=== PATIENT | female | born 1995 | race African-American/Black ===

== ENCOUNTER 2016-12-15 19:56 | Emergency (ER) | payer OTHER ==
--- NOTE | 2016-12-15 20:02 | ED Physician Documentation ---
PD HPI FEMALE - Stated complaint Stated Complaint: FEMALE /5WK OB - History obtained from History obtained from: Patient - History of Present Illness Timing - onset: How many hours ago (3 1/2), Today Timing - duration: Hours (3 1/2 hours ago started with some cramping and bleeding, has gone through 1 pad so far.) Timing - details: Abrupt onset, Still present Associated symptoms: Back pain, Pelvic pain, Vaginal bleeding. No: Fever, Chest /shoulder pain, Vaginal discharge, Genital sore/lesion, Dysuria Contributing factors: (she had positive test 2 weeks ago and a confirmatory blood test last week. Had cramps and vaginal bleeding today. 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 Longest duration was 10 weeks.) Similar symptoms before: Diagnosis (2 prior miscarriages) Recently seen: Clinic (had positive test about 2 weeks ago.) Review of Systems Constitutional: denies: Fever, Chills Nose: denies: Rhinorrhea / runny nose, Congestion Throat: denies: Sore throat Cardiac: denies: Chest pain / pressure Respiratory: denies: Dyspnea, Cough GI: reports: Nausea. 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) - Past Surgical History Past Surgical History: Yes HEENT: Myringotomy (tubes) - Present Medications Home Medications: Ambulatory Orders Medication Instructions Recorded Confirmed Pnv95/Ferrous Fumarate/FA 1 each PO DAILY 12/15/16 12/15/16 [ Formula] - Allergies Allergies/Adverse Reactions: Allergies Allergy/AdvReac Type Severity Reaction Status Date / Time Penicillins Allergy Anaphylaxis Verified 12/15/16 20:03 - Social History Does the pt smoke?: No Smoking Status: Former smoker Does the pt drink ETOH?: No Does the pt have substance abuse?: No - Immunizations Immunizations are current?: Yes PD ED PE NORMAL - Vitals Vital signs reviewed: Yes - General General: Alert and oriented X 3, No acute distress, Well developed/nourished - Neck Neck: Supple, no meningeal sign, No adenopathy - Cardiac Cardiac: RRR, No murmur - Respiratory Respiratory: Clear bilaterally - Abdomen Abdomen: Normal bowel sounds, Soft, Non distended, No organomegaly, Other (mild tender suprapubic area. Not tender RLQ. ) - Female Female : Deferred - Rectal Rectal: Deferred - Back Back: No CVA TTP - Derm Derm: Normal color, Warm and dry - Neuro Neuro: Alert and oriented X 3, No motor deficit, Normal speech Results - Vitals Vitals: Vital Signs - 24 hr 12/15/16 12/15/16 12/15/16 20:01 23:13 23:39 Temperature 36.5 C 36.5 C Heart Rate 86 65 95 Respiratory 16 20 18 Rate Blood Pressure 163/87 H 115/52 L 125/74 O2 Saturation 99 99 99 Oxygen O2 Source Room air - Labs Labs: Laboratory Tests 12/15/16 12/15/16 12/15/16 20:27 20:27 22:43 WBC 8.0 RBC 4.28 Hgb 12.1 Hct 36.2 L MCV 84.5 MCH 28.2 MCHC 33.4 RDW 15.6 H Plt Count 373 MPV 7.8 L Neut # 3.7 Lymph # 3.0 [place] # 0.8 Eos # 0.4 Baso # 0.1 Absolute Nucleated RBC 0.00 Nucleated RBCs 0.0 HCG, Quant 6.52 Urine Color YELLOW Urine Clarity HAZY Urine pH 6.0 Ur Specific Pool <=1.005 Urine Protein NEGATIVE Urine Glucose (UA) NEGATIVE Urine Ketones NEGATIVE Urine Occult Blood LARGE H Urine Nitrite NEGATIVE Urine Bilirubin NEGATIVE Urine Urobilinogen 0.2 (NORMAL) Ur Leukocyte Esterase NEGATIVE Urine RBC 6-10 H Urine WBC 0-3 Ur Squamous Epith Cells FEW Squamous Urine Bacteria None Seen Ur Microscopic Review INDICATED Urine Culture Comments NOT INDICATED - Rads (name of study) OB U/S Radiology: Prelim report reviewed (no IUP found nor any extrauterine abnormalities. ) PD MEDICAL DECISION MAKING - ED course Complexity details: reviewed results (Very low quant (lower than recent in clinic, 79 reported by patient) and no IUP found on U/S most likely c/w miscarriage. Talked with her about getting repeat HCG in 2-3 days to confirm still going down, but level of 6 is about at non- level. ), considered differential, d/w patient Departure - Departure Disposition: 01 Home, Self Care Clinical Impression: Hemorrhage, , early, Miscarriage Condition: Stable Record reviewed to determine appropriate education?: Yes Instructions: ED Miscarriage Completed Follow-Up: Loren Gottlieb MD [Primary Care Provider] - Comments: Seems likely a complete miscarriage. Recheck with PMD in 2 days if persistent bleeding, and to possibly get repeat blood test. Your Quant HCG level today is only 6, so very low, and no signs of on ultrasound. Return if worse bleeding, fevers, vomiting, lightheaded, other concerns. Discharge Date/Time: 12/15/16 23:49
[2016-12-15] MEDS ORDERED: ACETAMINOPHEN 325 MG TABLET PO STA (20:16)
[2016-12-15] MEDS ORDERED: ONDANSETRON ODT 4 MG TABLET TL STA (20:16)
[2016-12-15] MEDS ORDERED: IBUPROFEN 400 MG TABLET PO STA (20:16)
[2016-12-15] MEDS ORDERED: ACETAMINOPHEN 325 MG TABLET PO ONE (20:23)
[2016-12-15] MEDS ORDERED: ONDANSETRON ODT 4 MG TABLET ONE (20:23)
[2016-12-15] MEDS ORDERED: IBUPROFEN 400 MG TABLET PO ONE (20:23)
[2016-12-15 20:34] LABS: BASOPHILS # (AUTO) 0.1 10^3/uL (0.0-0.1); BASOPHILS % (AUTO) 1.3 %; EOSINOPHILS # (AUTO) 0.4 10^3/uL (0.0-0.7); HCT - HEMATOCRIT 36.2 % (37.0-47.0); HGB - HEMOGLOBIN 12.1 g/dL (12.0-16.0); LYMPHOCYTES % (AUTO) 37.6 %; MEAN CORPUSCULAR HEMOGLOBIN 28.2 pg (27.0-31.0); MEAN CORPUSCULAR HGB CONC 33.4 g/dL (32.0-36.0); MEAN CORPUSCULAR VOLUME 84.5 fL (81.0-99.0); MEAN PLATELET VOLUME 7.8 fL (7.9-10.8); MONOCYTES # (AUTO) 0.8 10^3/uL (0.0-1.0); MONOCYTES % (AUTO) 9.8 %; NEUTROPHILS # (AUTO) 3.7 10^3/uL (1.5-6.6); NEUTROPHILS % (AUTO) 46.3 %; RED BLOOD COUNT 4.28 10^6/uL (4.20-5.40); RED CELL DISTRIBUTION WIDTH 15.6 % (12.0-15.0)
--- NOTE | 2016-12-15 23:26 | Ultrasound Preliminary Report ---
Exam: US OB First Trimester IMPRESSION: 1. No intrauterine gestational sac demonstrated. No suspicious adnexal lesion. Correlation with beta- hCG values needed since an intrauterine is typically visualized around 1800 2000 beta-hCG. 2. Since an IUP is not visualized, ectopic cannot be excluded with certainty. [facility] SITE ID: [id number]
--- NOTE | 2016-12-15 23:28 | Ultrasound Report ---
REVISED: THIS REPORT WAS ORIGINALLY SIGNED ON 12/15/2016 @ 2328. ORDERS LINKED ON 01/19/2017. EXAM: FIRST TRIMESTER OBSTETRIC ULTRASOUND (Less than 11 weeks) EXAM DATE: 12/15/2016 10:51 PM. CLINICAL HISTORY: 5 weeks ; onset cramps/bleeding this afternoon. LMP: 11/13/2016. COMPARISONS: 09/06/2015 TECHNIQUE: Transvaginal ultrasound examination with static image documentation. CLINICAL DATES: LMP: 11/13/2016. Estimated gestational age: 4 weeks 4 days. Estimated due date: 2017. FINDINGS: Uterus: Uterus is normal in position and normal in configuration. Uterus measures 8.7 x 6.8 x 3.3 cm. No evident uterine masses. Endometrium: Endometrium measures 9.5 mm. No suspicious thickening or vascularity. Cervix: No suspicious lesion. Right Ovary: Normal in appearance measuring 3.5 x 2.9 x 1.6 cm. Normal blood flow. Left Ovary: Normal in appearance measuring 3.7 x 2.6 x 1.3 cm. Normal blood flow. Fluid: There is trace amount of fluid, within physiologic limits. Other: No other significant findings. IMPRESSION: 1. No intrauterine gestational sac demonstrated. No suspicious adnexal lesion. Correlation with beta-hCG values needed since an intrauterine is typically visualized around 1800 2000 beta-hCG. 2. Since an IUP is not visualized, ectopic cannot be excluded with certainty. [facility] Referring Provider Line: [phone] SITE ID: [id number]
[2016-12-15 23:40] VITALS: BP 125/74
[2016-12-15 23:45] LABS: BILIRUBIN,URINE NEGATIVE (NEGATIVE)
[2016-12-15 23:48] LABS: UA w/ MICROSCOPIC CHARGE YES
[2016-12-15 23:56] LABS: WBC,URINE 0-3 /HPF (0-5)
[2016-12-15 23:57] LABS: UR CULTURE IF IND NOT INDICATED
== END 2016-12-15 23:49 | disposition home or self-care (01) ==
LOC: ED 19:56
DX: O03.9 Complete or unspecified spontaneous abortion without complication (principal); Z87.891 Personal history of nicotine dependence
CPT/HCPCS: 36415; 76801; 76817; 81001; 84702; 85025; 99283; 99284; A9270; Q0162; 81003; 87086